=== PATIENT | female | born 1985 | race Caucasian/White ===

== ENCOUNTER → 2017-10-20 18:35 | Outpatient (CLI) | payer OTHER, SELFPAY ==
[2017-10-27 09:59] LABS: HPV HC, High Risk Negative (Negative)
[2017-10-27 10:46] LABS: HPV Reflexed? YES, CHARGE PATIENT
== END ==
PROVIDERS: Family Provider Family Medicine; PCP Family Medicine; Visit Provider Family Medicine
DX: Z12.4 Encounter for screening for malignant neoplasm of cervix (principal)
CPT/HCPCS: 87624; 88175; G0145

== ENCOUNTER 2018-08-21 04:44 | Inpatient (IN) | payer OTHER, SELFPAY ==
[2015-02-26 13:28] VITALS: BMI 23.8
[2018-08-21 05:16] VITALS: BMI 29.0
[2018-08-21] MEDS: Lactated Ringers 1,000 ML 50 ML IV ×2 (05:20→08:02)
[2018-08-21 05:37] LABS: Absolute Lymphocyte Count 1.36 X10^3/ul (0.83-4.51); Absolute Neutrophil Count 5.8 X10^3/uL (2.0-7.7); Basophil# 0.01 X10^3/uL; Basophil% 0.1 % (0-1); Eosinophil# 0.15 X10^3/uL; Eosinophils% 1.9 % (0-5); Hematocrit 36.8 % (37-47); Hemoglobin 12.7 g/dl (12.0-15.0); Lymphocyte # 1.36 X10^3/ul (4.0); Lymphocyte % 17.6 % (19-41); Mean Corp Hgb Conc 34.5 g/gl (32-36); Mean Corpuscular Hgb 30.2 pg (27.0-32.0); Mean Corpuscular Volume 87.4 fL (81-99); Mean Platelet Vol. 12.2 fl (6.2-12.0); Monocyte# 0.34 X10^3/uL; Monocyte% 4.4 % (0-10); Neutrophil # 5.83 X10^3/uL (2.7-7.7); Neutrophil % 75.6 % (47-70); Platelet Count 122 K/mm3 (150-450); RBC Distribution Width CV 12.6 % (11.6-14.6); RBC Distribution Width SD 40.6 fl (35.1-43.9); Red Blood Count 4.21 M/mm3 (4.2-5.4); White Blood Count 7.7 K/mm3 (4.4-11.0)
[2018-08-21 05:38] LABS: POSITIVE COUNT NO; POSITIVE DIFFERENTIAL NO; POSITIVE MORPHOLOGY NO
[2018-08-21] MEDS: Oxytocin 30 units/NS 500 ml 30 UNITS/500 ML IV.SOLN IV (05:55)
[2018-08-21] MEDS: fentaNYL-bupivacaine (epidural) 100 ML BAG EPIDURAL (08:06)
[2018-08-21] MEDS: Oxytocin 30 units/NS 500 ml 30 UNITS/500 ML IV.SOLN 334 UNITS IV (09:53)
[2018-08-21] MEDS: Oxytocin 30 units/NS 500 ml 30 UNITS/500 ML IV.SOLN 167 UNITS IV (10:23)
--- NOTE | 2018-08-21 10:29 | PCM.HP.OB ---
- Problem List (1) History of delivery Status: Acute (2) PROM (premature rupture of membranes) Status: Acute History Date of Admission: 08/21/18 Final FIONA: 08/30/18 Gestational age: 38 Weeks and 5 Days History of this : This is a 33 year-old, G [2], P [0101], at 38 weeks gestational age. Presented to L&D with complaint of ROM clear fluid at 0330 this am. No contractions or vaginal bleeding. Patient started on Pitocin for active management. Requested epidural for pain management. Allergies No Known Allergies Allergy (Verified 08/21/18 05:16) Home Medications: Home Medications Vits [Prenatabs FA ] 1 tablet PO DAILY 05/19/14 Smoking Status: Never smoker Alcohol: None Number of Fetus(es): 1 Heart Tracin, moderate variability, accels, no decels TOCO: every 2 minutes, Pitocin at 4 mu's History Past Pregnancies: Past Pregnancies Delivery Date Name GA/Weeks Outcome Route Weight Infant Gender Labor Length Anesthesia Delivery Location Provider FOB Labs: HIV negative HBsAG negative Rubella Immune RPR negative GBS negative A positive GC/CT negative 1hr GCT 136 Expected Delivery Method: Spontaneous Vaginal Physical Exam General: Alert, Oriented x3 HEENT: Atraumatic, Normocephalic Lungs: Normal air movement Estimated gestational size: Appropriate for gestational size Presentation: Cephalic Cervix Dilation (cm): 10 Station: 1 Effacement (%): 100 Assessment/Plan All Active Problems History of delivery (Acute) PROM (premature rupture of membranes) (Acute) This is a 33 year-old, G [2], P [0101], at 38 weeks gestational age. A:Premature rupture of Membranes Active Labor, progressive Category 1 FHT P: 1) Admit for labor. Routine labs 2) Epidural for pain management 3) Anticipate vaginal delivery 4) Pitocin for active management. 5) notified of patient in labor.
--- NOTE | 2018-08-21 11:06 | PCM.OPRPT ---
Problem List (1) History of delivery Status: Acute (2) PROM (premature rupture of membranes) Status: Acute (3) Vaginal delivery Status: Acute (4) First degree perineal laceration during delivery Status: Acute Vaginal Delivery Maternal Presentation: Spontaneous Rupture of Membranes Method of Induction: Pitocin Medical Reason for Induction: Premature Rupture of Membranes Amniotic Membrane Rupture Type: Spontaneous at home Rupture of Membrane time: 0330 Amniotic Fluid Description: Clear Final FIONA: 08/30/18 Gestational age: 38 Weeks and 5 Days Date of Procedure: 08/21/18 Pre-Operative Diagnosis: PROM Post-Operative Diagnosis: Surgery/ Procedure Performed: Spontaneous Vaginal Delivery Type of Anesthesia: Epidural Description of Procedure: Progressed to complete after epidural with urge to push. of viable male infant over 1st degree perineal laceration. APGARS 8,9. head delivered with body forthcoming after restitution. Infant placed on maternal abdomen, mouth and nares suctioned for secretions, strong cry. Pitocin started for active 3rd stage management. Cord clamped and cut after pulsations ceased. Placenta delivered with maternal effort, intact, 3 vessel cord. Perineum inspected and revealed 1st degree perineal laceration. Repaired with 3.0 vicryl under epidural analgesia. Fundus firm and vaginal sweep completed, EBL 300ml. Sponge and instrument count correct. Mom and baby stable. Planning to breastfeed, family bonding well. notified of delivery. Presentation: Vertex Placental Delivery Description: Spontaneous Placenta Disposition: [facility] Cord Vessel Description: 3 Vessels Cord Entanglement: None Estimated Blood Loss: 300 Infant A gender: Male (1 minute): 8 (5 minute): 9 Episiotomy Description: None Laceration: Periurethral Extnsion/lac Medications given after delivery: IV Pitocin
[2018-08-21] MEDS: 0.9% Saline Lock 10 ML Syringe IV (11:25)
[2018-08-21 15:40] VITALS: BP 114/61; PULSE 105; RESP 16; TEMP 37.1
[2018-08-21] MEDS: Ibuprofen 600 MG Tablet PO (18:13)
[2018-08-21 20:30] VITALS: BP 107/62; PULSE 72; RESP 16; TEMP 37.3
[2018-08-22] VITALS: BP 98/58; PULSE 68; RESP 16; TEMP 37.1
[2018-08-22] MEDS: Ibuprofen 600 MG Tablet PO ×2 (00:31→17:21)
[2018-08-22 04:00] VITALS: BP 109/68; PULSE 63; RESP 16; TEMP 36.6
[2018-08-22 07:30] VITALS: BP 99/56; PULSE 74; RESP 18; TEMP 36.5
--- NOTE | 2018-08-22 11:09 | PCM.PN.OB ---
Patient Problems: Active and Suspected Problems History of delivery (Acute) PROM (premature rupture of membranes) (Acute) Vaginal delivery (Acute) First degree perineal laceration during delivery (Acute) Subjective: Doing well per patient and nursing staff. Ambulating and taking PO without difficulty. Voiding and having BM. and getting assistance from nursing staff. Denies any increased pain, vaginal bleeding or clots. Having some dizziness, difficulty standing and used bedside commode this morning. Has got up to bathroom since. No SOB. Planning D/C home tomorrow. - Physical Exam General: Alert, Oriented x3, Cooperative HEENT: Atraumatic, Normocephalic Lungs: Clear to auscultation, Normal air movement, No rhonchi, No wheeze Cardiovascular: Regular rate, Regular Rhythm, No murmurs Abdomen: Bowel Sounds Present, Soft, - - Fundus firm 2 below U Extremities: No edema Psych/Mental Status: Normal Affect, Appropriate Vital Signs Temp Pulse Resp BP 97.7 F L 74 18 99/56 L 08/22/18 07:30 08/22/18 07:30 08/22/18 07:30 08/22/18 07:30 Oxygen Delivery Method Room Air Weight: 154 lb Body Mass Index (BMI) 29.0 Intake and Output for Last 24 Hours 08/20/18 08/21/18 08/22/18 23:59 23:59 23:59 Intake Total 2570 / 2570 Output Total 1350 / 1350 Balance 1220 / 1220 Medical Necessity - Tobacco Use Smoking Status: Never smoker Assessment/Plan All Active Problems History of delivery (Acute) PROM (premature rupture of membranes) (Acute) Vaginal delivery (Acute) First degree perineal laceration during delivery (Acute) A:PPD #1 P: 1) routine and care 2) CBC for dizziness, to call with results 3) Planning D/C home tomorrow
--- NOTE | 2018-08-22 11:18 | DCINST_ITS ---
Discharge Diet: No Restrictions Discharge Activity: Return to Normal Activity, May not drive while taking narcotic pain medications., May Shower, May Take a Tub Bath May resume sexual activity in: 4-6 weeks Additional Activity Instructions:: Nothing in the vagina for 4-6 weeks. You may return to work/school in 6 weeks. Call your doctor if your incision/area has: Continuous Slow Oozing, Sudden Increased Bleeding, Increased Pain/ Swelling, Increased Redness, Foul Smelling Discharge Call your doctor if you observe: Fever of 101 or Higher, Inability to urinate, Inability to have a bowel movement, Using more than one pad per hour, Shortness of breath, Dizziness, Chest pain, Increased palpitations (irregular heartbeat), Calf discomfort, Uncontrolled pain Additional Instructions: If you experience any of the following, contact your healthcare provider. * Bleeding that soaks a pad every hour for 2 hours * Fever 100.4 or higher * Unrelieved incision or abdominal pain * Swelling, redness, discharge or bleeding from your incision or episiotomy site * Your incision begins to separate * Problems urinating (including inability to urinate or burning while urinating). * Visual changes * Severe headache * Flu-like symptoms * Pain or redness in one of both of your breasts * Pain, warmth, tenderness or swelling in your legs, especially the calf area * Frequent nausea and vomiting * Symptoms of depression or anxiety If you experience any of the following, call 911 or go to the nearest Emergency Room. * Chest pain * Problems breathing * Seizure activity * Partial or complete paralysis of a body part, slurred speech, weakness or drooping of the face, or a sudden inability to walk or hold your balance Allergies/Adverse Reactions: Allergies No Known Allergies Allergy (Verified 08/21/18 05:16) Medications to take at Discharge Vits [Prenatabs FA ] 1 tablet PO DAILY 05/19/14 Ibuprofen [Motrin] 600 mg PO Q6H PRN PRN #30 tablet 08/22/18 The following prescriptions were given: Ibuprofen [Motrin] 600 mg PO Q6H PRN PRN #30 tablet PRN Reason: Mild Pain (-07/04) Please Follow Up With: Yudith Cain CNM When: Call to make an appointment with your doctor in 2 weeks and 6 weeks. Primary Care Physician: Audrey Louis MD [Primary Care Provider] - Test Results: Test results from this visit will be discussed in further detail at your follow- up appointment, if applicable.
[2018-08-22 12:56] VITALS: BP 109/71; PULSE 71; RESP 16; TEMP 36.5
[2018-08-22 18:08] VITALS: BP 85/52; PULSE 70; RESP 16; TEMP 36.4
[2018-08-22 21:05] VITALS: BP 113/72; PULSE 66; RESP 18; TEMP 36.3
[2018-08-23 03:35] VITALS: BP 101/66; PULSE 69; RESP 18; TEMP 36.4
[2018-08-23] MEDS: Ibuprofen 600 MG Tablet PO (03:48)
[2018-08-23 07:50] VITALS: BP 96/59; PULSE 70; RESP 18; TEMP 36.4
--- NOTE | 2018-08-23 08:26 | PN.OBGYN_ITS ---
Patient Problems: Active and Suspected Problems History of delivery (Acute) PROM (premature rupture of membranes) (Acute) Vaginal delivery (Acute) First degree perineal laceration during delivery (Acute) Subjective: Patient sitting up in bed on phone coordinating insurance benefits and adding onto insurance plan. Patient denies any issues at this time. She reports no issues with , infant is latching well without difficulty. Patient desires discharge to home. Objective: VSS, Afebrile Nipples without cracks, blisters. No erythema noted. Abdomen NT x 4 quadrants, FF midline 2FB below umbilicus Perineum well-approximated scant rubra lochia +2/4 reflexes in LE, no edema, negative calf tenderness to palpation - Physical Exam General: Alert, Oriented x3, Cooperative HEENT: Atraumatic, Normocephalic Lungs: Normal air movement Cardiovascular: Regular rate, Regular Rhythm, No murmurs Abdomen: Soft, Non Tender, Passing Flatus Extremities: No edema, Capillary Refill Less than 3 Seconds Skin: No rashes, No breakdown Musculoskeletal: No Tenderness to Palpation of Joints or Extremities Neurological: Cranial nerves II-XII grossly intact, Deep Tendon Reflexes 2+/4 and Symmetrical Psych/Mental Status: Normal Affect, Appropriate Vital Signs Temp Pulse Resp BP 97.6 F L 70 18 96/59 L 08/23/18 07:50 08/23/18 07:50 08/23/18 07:50 08/23/18 07:50 Oxygen Delivery Method Room Air Weight: 154 lb Body Mass Index (BMI) 29.0 Intake and Output for Last 24 Hours 08/21/18 08/22/18 08/23/18 23:59 23:59 23:59 Intake Total 2570 / 2570 Output Total 1350 / 1350 Balance 1220 / 1220 Medical Necessity - Tobacco Use Smoking Status: Never smoker Assessment/Plan All Active Problems History of delivery (Acute) PROM (premature rupture of membranes) (Acute) Vaginal delivery (Acute) First degree perineal laceration during delivery (Acute) 33 y/o s/p , PPD #2, Normal PP Course P: 1) Discharge patient to home pending discharge 2) Anticipatory PP teaching done 3) RTC at 2 and 6 weeks PP to [facility]LL[facility]
== END 2018-08-23 12:00 | disposition home or self-care (01) | DRG 807 ==
PROVIDERS: Admitting Provider Obstetrics & Gynecology; Family Provider Family Medicine; PCP Family Medicine; Visit Provider Obstetrics & Gynecology
DX: O42.02 Full-term premature rupture of membranes, onset of labor within 24 hours of rupture (principal); Z37.0 Single live birth; O70.0 First degree perineal laceration during delivery; O99.89 Other specified diseases and conditions complicating pregnancy, childbirth and the puerperium; R42 Dizziness and giddiness; Z3A.38 38 weeks gestation of pregnancy
CPT/HCPCS: 59025; 59050; 85025; 86850; 86900; 99218; J7120; A4216; G0378

== ENCOUNTER 2020-04-02 20:35 | Inpatient (IN) | payer OTHER, SELFPAY ==
[2020-04-02] VITALS (10 sets, daily range): BP systolic 108–147; BP diastolic 57–77; PULSE 73–113; RESP 18; TEMP 36.6–36.9; O2SAT 100; BMI 28.5
[2020-04-02] MEDS: Oxytocin 10 UNITS/ML Vial IM (20:50)
--- NOTE | 2020-04-02 21:05 | PCM.OPRPT ---
Problem List (1) 37 weeks gestation of Status: Acute (2) Spontaneous rupture of membranes Status: Acute Report of Operation Date of Procedure: 04/02/20 Vaginal Delivery Maternal Presentation: Active Labor, Spontaneous Rupture of Membranes Patient is a at 37.2 weeks gestation that presented to labor and delivery via squad for spontaneous rupture of membranes and active labor. Amniotic Membrane Rupture Type: Spontaneous at home Amniotic Fluid Description: Clear Final FIONA: 04/21/20 Gestational age: 37 Weeks and 2 Days Date of Procedure: 04/02/20 Pre-Operative Diagnosis: term gestation, spontaneous rupture of membranes, active labor Post-Operative Diagnosis: same, precipitous delivery, live male Surgery/ Procedure Performed: Spontaneous Vaginal Delivery Type of Anesthesia: None Description of Procedure: Patient arrived to unit via squad feeling like she had to push. Patient quickly transferred to bed and began to crown. head delivered with minimal maternal effort followed by shoulders and rest of body. Short cord noted. Vigorous placed on maternal abdomen and was attended to by nursing staff. Cord clamped and cut after 2 minute delay. IM Pitocin given for active management of the third stage of labor. Placenta delivered spontaneously and intact. Infant immediately placed skin to skin with patient. Perineum and vagina intact. Vaginal sweep completed by me. Fundus firm at U. Bleeding hemostatic. EBL 200 cc. APGARS 8/9. Infant and mother bonding at this time. Presentation: Vertex, RAN Placental Delivery Description: Spontaneous Placenta Disposition: [facility] Cord Vessel Description: 3 Vessels Cord Entanglement: None Estimated Blood Loss: 200 Infant A gender: Male (1 minute): 8 (5 minute): 9 Episiotomy Description: None Laceration: None Medications given after delivery: - - IM Pitocin Complications: None
--- NOTE | 2020-04-02 21:19 | PCM.HP.OB ---
- Problem List (1) 37 weeks gestation of Status: Acute (2) Spontaneous rupture of membranes Status: Acute History Date of Admission: 08/21/18 Final FIONA: 04/21/20 Gestational age: 37 Weeks and 2 Days History of this : This is a 35 year-old, G [3], P [2], at 37.2 weeks gestational age that presents to unit via squad for spontaneous rupture of membranes and active labor. complicated by AMA and history of delivery at 32 weeks gestation. Allergies No Known Allergies Allergy (Verified 08/21/18 05:16) Home Medications: Home Medications Vits [Prenatabs FA ] 1 tablet PO DAILY 05/19/14 Smoking Status: Never smoker Alcohol: None Number of Fetus(es): 1 NST - FHR Rate Baby A Baseline: 140 History Past Pregnancies: Past Pregnancies Delivery Date Name GA/ Weeks Outcome Route Wt Infant Sex Labor Length Anesthesia Delivery Location Provider FOB Labs: A+ Rubella- immune HB- neg HC- neg RPR- NR HIV- NR GC/CH- neg GBS- negative COVID- 19 unknown Expected Infant Delivery Method: Spontaneous Vaginal Review of Systems Constitutional: Denies: Chills, Fever Cardiovascular: Denies: Chest Pain, Light Headedness Respiratory: Denies: Cough, Shortness of Breath Gastrointestinal: Denies: Abdominal Pain Genitourinary: Denies: Dysuria Neurological: Denies: Headaches Psychiatric: Denies: Anxiety Physical Exam Vitals: Vital Signs Pulse BP 107 H 134/67 H 04/02/20 21:16 04/02/20 21:16 General: Alert, Oriented x3, Cooperative Cardiovascular: Regular rate Lungs: Normal air movement Abdomen: Soft, Non Tender, Gravid Neurological: Cranial nerves II-XII grossly intact Assessment/Plan All Active Problems History of delivery (Acute) PROM (premature rupture of membranes) (Acute) Vaginal delivery (Acute) First degree perineal laceration during delivery (Acute) 37 weeks gestation of (Acute) Spontaneous rupture of membranes (Acute) This is a 35 year-old, G [3], P [2], at 37.2 weeks gestational age with spontaneous rupture of membranes and active labor. Admit to labor and delivery Routine care IM Pitocin for active management of third stage CBC, T&S GBS negative A+ COVID-19 - unknown Anticipate Dr. Bustamante notified and is collaborating physician
[2020-04-02] MEDS: Ibuprofen 600 MG Tablet PO (21:38)
--- NOTE | 2020-04-02 21:42 | NURSING ---
collected by Rose Hendricks RN
[2020-04-02] MEDS: Methylergonovine 0.2 MG/ML Ampul IM (21:59)
[2020-04-02 22:28] LABS: Absolute Lymphocyte Count 0.59 X10^3/uL (0.83-4.51); Absolute Neutrophil Count 15.5 X10^3/uL (2.0-7.7); Basophil# 0.03 X10^3/uL; Basophil% 0.2 % (0-1); Eosinophil# 0.05 X10^3/uL; Eosinophils% 0.3 % (0-5); Hematocrit 36.3 % (37-47); Hemoglobin 12.3 g/dL (12.0-15.0); Lymphocyte # 0.59 X10^3/ul (4.0); Lymphocyte % 3.6 % (19-41); Mean Corp Hgb Conc 33.9 g/dL (32-36); Mean Corpuscular Volume 91.4 fL (81-99); Mean Platelet Vol. 11.8 fl (6.2-12.0); Monocyte# 0.35 X10^3/uL; Monocyte% 2.1 % (0-10); NRBC Flagged by Analyzer 0 % (0-5); Neutrophil # 15.45 X10^3/uL (2.7-7.7); Neutrophil % 93.1 % (47-70); POSITIVE DIFFERENTIAL YES; Platelet Count 158 K/mm3 (150-450); RBC Distribution Width CV 12.6 % (11.6-14.6); RBC Distribution Width SD 41.3 fl (35.1-43.9); Red Blood Count 3.97 M/mm3 (4.2-5.4); White Blood Count 16.6 K/mm3 (4.4-11.0)
[2020-04-02 22:31] LABS: Differential Indicated SCAN CRITERIA MET
[2020-04-02] MEDS: Acetaminophen 500 MG Tablet 1000 MG PO (22:31)
[2020-04-03 03:15] VITALS: BP 109/68; PULSE 78; RESP 20; TEMP 36.9
[2020-04-03] MEDS: Ibuprofen 600 MG Tablet PO (03:44)
[2020-04-03 08:05] VITALS: BP 99/58; PULSE 84; RESP 14; TEMP 36.9
--- NOTE | 2020-04-03 08:50 | DCINST_ITS ---
Discharge Diet: No Restrictions Discharge Activity: May Drive, May Shower May resume sexual activity in: 6 weeks Additional Instructions: If you experience any of the following, contact your healthcare provider. * Bleeding that soaks a pad every hour for 2 hours * Fever 100.4 or higher * Unrelieved incision or abdominal pain * Swelling, redness, discharge or bleeding from your incision or episiotomy site * Your incision begins to separate * Problems urinating (including inability to urinate or burning while urinating). * Visual changes * Severe headache * Flu-like symptoms * Pain or redness in one of both of your breasts * Pain, warmth, tenderness or swelling in your legs, especially the calf area * Frequent nausea and vomiting * Symptoms of depression or anxiety If you experience any of the following, call 911 or go to the nearest Emergency Room. * Chest pain * Problems breathing * Seizure activity * Partial or complete paralysis of a body part, slurred speech, weakness or drooping of the face, or a sudden inability to walk or hold your balance Allergies/Adverse Reactions: Allergies No Known Allergies Allergy (Verified 08/21/18 05:16) Medications to take at Discharge Vits [Prenatabs FA ] 1 tablet PO DAILY 05/19/14 Acetaminophen [Tylenol] 1,000 mg PO Q8H PRN PRN tablet 04/03/20 Ibuprofen [Motrin] 600 mg PO Q6H PRN PRN tablet 04/03/20 Primary Care Physician: Audrey Louis MD [Primary Care Provider] - Test Results: Test results from this visit will be discussed in further detail at your follow- up appointment, if applicable.
--- NOTE | 2020-04-03 08:50 | PCM.DCVAG ---
Discharge Diet: No Restrictions Discharge Activity: May Drive, May Shower May resume sexual activity in: 6 weeks Additional Instructions: If you experience any of the following, contact your healthcare provider. Bleeding that soaks a pad every hour for 2 hours Fever 100.4 or higher Unrelieved incision or abdominal pain Swelling, redness, discharge or bleeding from your incision or episiotomy site Your incision begins to separate Problems urinating (including inability to urinate or burning while urinating). Visual changes Severe headache Flu-like symptoms Pain or redness in one of both of your breasts Pain, warmth, tenderness or swelling in your legs, especially the calf area Frequent nausea and vomiting Symptoms of depression or anxiety If you experience any of the following, call 911 or go to the nearest Emergency Room. Chest pain Problems breathing Seizure activity Partial or complete paralysis of a body part, slurred speech, weakness or drooping of the face, or a sudden inability to walk or hold your balance Allergies/Adverse Reactions: Allergies No Known Allergies Allergy (Verified 08/21/18 05:16) Medications to take at Discharge Vits [Prenatabs FA ] 1 tablet PO DAILY 05/19/14 Acetaminophen [Tylenol] 1,000 mg PO Q8H PRN PRN tablet 04/03/20 Ibuprofen [Motrin] 600 mg PO Q6H PRN PRN tablet 04/03/20 Primary Care Physician: Audrey Louis MD [Primary Care Provider] - Test Results: Test results from this visit will be discussed in further detail at your follow-up appointment, if applicable.
--- NOTE | 2020-04-03 08:52 | PN.OBGYN_ITS ---
Patient Problems: Active and Suspected Problems 37 weeks gestation of (Acute) Spontaneous rupture of membranes (Acute) Subjective: No complaints - Physical Exam Vitals/I&O's: Vital Signs Temp Pulse Resp BP Pulse Ox 98.5 F 78 20 H 109/68 100 04/03/20 03:15 04/03/20 03:15 04/03/20 03:15 04/03/20 03:15 04/02/20 23:04 Oxygen Delivery Method Room Air Weight: 151 lb Body Mass Index (BMI) 28.5 Intake and Output for Last 24 Hours 04/01/20 04/02/20 04/03/20 23:59 23:59 23:59 Output Total 100 / 100 500 / 500 Balance -100 / -100 -500 / -500 General: Alert, Oriented x3 Abdomen: Soft, Non Tender, Non-Distended - ff mid & below umb Extremities: No Calf Tenderness Neurological: Cranial nerves II-XII grossly intact Microbiology Past 72 Hours 04/02/20 Unknown Mucosa - Nasopharyngeal SARS-CoV-2 Antigen (Rapid) - Final Laboratory Results 04/02/20 21:30: Blood Type A POSITIVE, Antibody Screen NEGATIVE 04/02/20 22:10: WBC 16.6 H, RBC 3.97 L, Hgb 12.3, Hct 36.3 L, MCV 91.4, MCH 31.0, MCHC 33.9, RDW Std Deviation 41.3, RDW Coeff of Carmen 12.6, Plt Count 158, MPV 11.8, Immature Gran % (Auto) 0.700, Neut % (Auto) 93.1 H, Lymph % (Auto) 3.6 L, Dickens % (Auto) 2.1, Eos % (Auto) 0.3, Baso % (Auto) 0.2, Absolute Neuts (auto) 15.5 H, Absolute Lymphs (auto) 0.59 L, Nucleated RBC % 0, Differential Comment COMMENT Current Medications Acetaminophen (Acetaminophen 500 Mg Tablet) 1,000 mg PO Q8H PRN PRN PRN Reason: Pain Score 1-3 Last Admin: 04/02/20 22:31 Dose: 1,000 mg Documented by: Bisacodyl (Bisacodyl 10 Mg Suppository) 10 mg RECTAL UD PRN PRN Reason: If no BM Dibucaine (Dibucaine 30 Gm Tube) 1 applic TOPICAL TID PRN PRN; Protocol PRN Reason: Discomfort Hydrocortisone (Hydrocortisone 2.5% Crm) 1 applic TOPICAL TID PRN PRN; Protocol PRN Reason: Discomfort Ibuprofen (Ibuprofen 600 Mg Tablet) 600 mg PO Q6H PRN PRN PRN Reason: Pain Score 1-3 Last Admin: 04/03/20 03:44 Dose: 600 mg Documented by: Methylergonovine Maleate (Methylergonovine 0.2 Mg/Ml Ampul) 0.2 mg IM X1 PRN PRN Reason: Excess bleeding/uterine atony Last Admin: 04/02/20 21:59 Dose: 0.2 mg Documented by: Ondansetron HCl (Ondansetron 4 Mg/2 Ml Vial) 4 mg IV Q4H PRN PRN PRN Reason: Nausea Oxytocin (Oxytocin 10 Units/Ml Vial) 10 units IM X1 MARIAA Last Admin: 04/02/20 20:50 Dose: 10 units Documented by: Senna/Docusate Sodium (Senna/Docusate Sodium 1 Tablet) 1 - 2 tablet PO DAILY PRN PRN PRN Reason: Constipation Simethicone (Simethicone 80 Mg Tablet) 80 mg PO PCHS PRN PRN Reason: Indigestion/Stomach pain Medical Necessity - Tobacco Use Smoking Status: Never smoker Assessment/Plan All Active Problems History of delivery (Acute) PROM (premature rupture of membranes) (Acute) Vaginal delivery (Acute) First degree perineal laceration during delivery (Acute) 37 weeks gestation of (Acute) Spontaneous rupture of membranes (Acute) PPD#1 Possible d/c home later today if requested by patient
[2020-04-03] MEDS: Acetaminophen 500 MG Tablet 1000 MG PO (09:19)
[2020-04-03 12:30] VITALS: BP 102/51; PULSE 83; RESP 16; TEMP 37.1
[2020-04-03 16:30] VITALS: BP 96/48; PULSE 91; RESP 16; TEMP 36.8
[2020-04-03 19:18] VITALS: BP 93/56; PULSE 84; RESP 16; TEMP 36.8
== END 2020-04-03 21:51 | disposition home or self-care (01) | DRG 807 ==
PROVIDERS: Admitting Provider Advanced Practice Midwife; PCP Family Medicine; Visit Provider Advanced Practice Midwife
DX: O62.3 Precipitate labor (principal); Z37.0 Single live birth; Z3A.37 37 weeks gestation of pregnancy; O69.3XX0 Labor and delivery complicated by short cord, not applicable or unspecified
CPT/HCPCS: 59050; 85025; 86850; 86900; 86901; 87426; 99218; G0378